=== PATIENT | male | born 1970 | race African-American/Black ===

== ENCOUNTER 2017-11-24 04:31 | Emergency (ER) | payer OTHER | END 2017-11-24 05:50 | disposition home or self-care (01) | LOC: ERS 04:31 | DX: J06.9 Acute upper respiratory infection, unspecified (principal); I10 Essential (primary) hypertension; E78.5 Hyperlipidemia, unspecified; F17.210 Nicotine dependence, cigarettes, uncomplicated; Z79.899 Other long term (current) drug therapy | CPT/HCPCS: 87804; 99283 ==